=== PATIENT | female | born 1985 | race Caucasian/White ===

== ENCOUNTER 2024-07-19 17:43 | Emergency (ER) | payer OTHER, SELFPAY ==
[2024-07-19 17:47] VITALS: BP 147/92
[2024-07-19 18:16] LABS: % Basophils 0.6 % (0-2); % Eosinophils 0.4 % (0-6); % Immature Granulocytes 0.4 % (0-0.5); % Lymphocytes 13.4 % (20.5-51.1); % Monocytes 9.9 % (1.7-9.3); % Neutrophils 75.3 % (42.2-75.2); Absolute Basophils 0.1 10^3/uL (0-0.2); Absolute Lymphocytes 1.1 10^3/uL (1.2-3.4); Absolute Monocytes 0.8 10^3/uL (0.1-0.6); Absolute Neutrophils 6.1 10^3/uL (1.4-6.5); Hematocrit 37.5 % (37.0-47.0); Hemoglobin 13.5 g/dL (12.0-16.0); Mean Corpuscular Hgb 33.3 pg (27.0-31.0); Mean Corpuscular Volume 92.4 fL (81.0-99.0); Mean Platelet Volume 9.3 fL (7.4-10.4); Nucleated Red Blood Cells % 0 %; Platelet Count 282 10^3/uL (130-400); Red Blood Cell Count 4.06 10^6/uL (4.20-5.40); Red Cell Dist. Width 13.1 % (11.5-14.5); White Blood Cell Count 8.1 10^3/uL (4.8-10.8)
[2024-07-19 18:29] LABS: HCG, Serum Qualitative Screen Negative
[2024-07-19 18:33] LABS: ALT (SGPT) 31 U/L (0-35); AST (SGOT) 40 U/L (14-36); Albumin 4.7 g/dl (3.5-5.0); Alkaline Phosphatase 53 U/L (38-126); Blood Urea Nitrogen 13 mg/dl (7-17); Carbon Dioxide 25 mmol/L (22-30); Chloride 103 mmol/L (98-107); Glucose 126 mg/dl (70-99); Lipase 51 U/L (23-300); Potassium 4.2 mmol/L (3.5-5.1); Sodium 137 mmol/L (135-145); Total Bilirubin 0.5 mg/dl (0.2-1.3); Total Protein 7.3 g/dl (6.3-8.2); eGFR > 60.00
--- NOTE | 2024-07-19 20:13 | ED.GENMED ---
History of Present Illness
General
Chief Complaint: Abdominal Pain
Source: patient
Exam Limitations: none
Time Seen by Provider: 07/19/24 20:02
Nursing documentation reviewed up to this point in time: agreed with
History of Present Illness
History of Present Illness:
Patient to ED with complaint of n/v and abdominal pain since this AM. Denies fever/chills. No diarrhea. TO ED accompanied by spouse.
Past History
Past History
ED Past Medical History: Asthma, GERD and Other (Gastroparesis)
ED Past Surgical History: None
Social History
Tobacco: Smoker
Alcohol: Occasional
Personal: Single
Living: alone
Review of Systems
Review of Systems
Allergies reviewed?: Yes
All Other Systems: ROS reviewed and negative except as documented in HPI and ROS
Constitutional: Reports no symptoms
EENT: Reports no symptoms
Respiratory: Reports no symptoms
Cardiac: Reports no symptoms
ABD/GI: Reports abdominal pain (diffuse abd. pain), nausea and vomiting
: Reports no symptoms
Musculoskeletal: Reports no symptoms
Skin: Reports no symptoms
Neurological: Reports no symptoms
Psychiatric: Reports no symptoms
Phy Exam
General Physical Exam
General Presentation: moderate distress
General age: appears stated age
General Skin: warm and dry
General Habitus: normal
Cardiovascular Exam
Cardiovascular Exam: regular rate/rhythm
Gastrointestinal Exam
Gastrointestinal Exam: normal bowel sounds, soft, no organomegaly, no pulsatile mass, non distended and no cva tenderness
Palpation: generalized: Moderate tenderness
Musculoskeletal Exam
Musculoskeletal Exam: full ROM
Skin Exam
Skin Exam: normal color, warm/dry and no rash
Psychiatric Exam
Psychiatric Exam: normal mood/affect
Course
Orders/Labs/Results
Orders:
Orders
07/19/24 17:51
Test Result ONCE
07/19/24 17:56
Complete Blood Count/With Diff Urgent
Comprehensive Metabolic Panel Urgent
HCG, Serum Qualitative Screen Urgent
Lipase Urgent
07/19/24 20:06
Urinalysis Reflex To Culture Urgent
07/19/24 20:09
0.9% Sodium Chloride 1000 ml [Nss] 1,000 ml IV BOLUS
HYDROmorphone [Dilaudid] 0.5 mg IV NOW STA
Ondansetron Injectable [Zofran] 4 mg IV NOW STA
07/19/24 20:10
CT Abd/pelvis W Iv Cont Urgent
Comment:
Reason For Exam: diffuse abd. pain, vomiting.
Abnormal Lab Results
07/19/24
17:56
RBC 4.06 L 10^6/uL
(4.20-5.40)
MCH 33.3 H pg
(27.0-31.0)
Absolute Lymphs (auto) 1.1 L 10^3/uL
(1.2-3.4)
Absolute Monos (auto) 0.8 H 10^3/uL
(0.1-0.6)
Neutrophils % 75.3 H %
(42.2-75.2)
Lymphocytes % 13.4 L %
(20.5-51.1)
Monocytes % 9.9 H %
(1.7-9.3)
Glucose 126 H mg/dl
(70-99)
AST 40 H U/L
(14-36)
07/19/24 17:56
07/19/24 17:56
Vital Signs
Initial and Last Documented VS:
Initial Vital Signs
Pulse Resp BP Pulse Ox
71 22 147/92 100
07/19/24 17:47 07/19/24 17:47 07/19/24 17:47 07/19/24 17:47
Last Documented Vital Signs
Pulse Resp BP Pulse Ox
55 20 119/68 100
07/19/24 20:55 07/19/24 20:55 07/19/24 20:55 07/19/24 20:55
*Radiology
Radiology exam reviewed: radiology read reviewed
*Pulse Oximetry
Patient hypoxic: no
*Critical Care Note
Total Time (30-74mins, 75-104mins- exclusive of procedures): Not Applicable
Update Note
Update Note:
Patient to ED with complaint of diffuse abd pain, n/v since this AM. Pain has completely resolved after IVF and pain meds. CT report reviewed with her. WIll discharge home. SHe was given instructions on s/s to return to ED and she is agreeable to
plan
ED Attending Note
-
Portions of this chart may have been created with voice recognition software.� Occasional wrong word or��sound alike� substitutions may have occurred due to the inherent limitations of voice recognition software.
Discharge Plan
Departure
Patient Disposition: Home (Routine Discharge)
Date of Disposition: 07/19/24
Time of Disposition: 22:13
Patient with high blood pressure during this ER visit?: No
Condition: Good
Covid-19: Not Applicable
Discharge Problem:
Abdominal pain
Instructions: Clear Liquid Diet, Abdominal Pain
Prescriptions:
No Action
Kera
1 tab PO DAILY
spironolactone 100 mg Tablet
100 mg PO DAILY
levothyroxine [Synthroid] 100 mcg Tablet
100 mcg PO DAILY
Referrals:
Joe Bunch MD [Family Provider] - Next open appointment
Activity Restrictions/Additional Instructions:
Return to the emergency department immediately for any changes in/worsening of your symptoms.
Interventions
Interventions:
*Risk Screen - Suicide Last Done: 07/19/24 17:47
*General Assessment Last Done: 07/19/24 17:47
*Neglect/Abuse Screening Last Done: 07/19/24 20:52
*ED- Fall Risk Assessment Last Done: 07/19/24 21:04
HB-Vwsdmu-Arxivxbhfx Assessment Last Done: 07/19/24 21:04
Discharge Date and Time
Print Language: SPANISH
[2024-07-19 20:52] VITALS: BMI 22.7
[2024-07-19 20:55] VITALS: BP 119/68
[2024-07-19] MEDS: NSS 1000 IV (20:59)
[2024-07-19] MEDS: ZOFRAN 4 MG IV (21:00)
[2024-07-19] MEDS: DILAUDID 0.5 MG IV (21:01)
[2024-07-19 22:26] VITALS: BP 110/60
== END 2024-07-19 22:31 | disposition home or self-care (01) ==
LOC: EMR 17:43
PROVIDERS: Emergency Medicine; EMERGENCY PHYSICIAN Student in an Organized Health Care Education/Training Program; FAMILY PHYSICIAN Internal Medicine
DX: R10.9 Unspecified abdominal pain (principal); J45.909 Unspecified asthma, uncomplicated; K21.9 Gastro-esophageal reflux disease without esophagitis; F17.200 Nicotine dependence, unspecified, uncomplicated
CPT/HCPCS: 99284; 96374; 96375; 96361; 74177; 80053; 83690; 84703; 85025; Q9967